=== PATIENT | female | born 1975 | race Asian ===

== ENCOUNTER 2016-10-13 19:05 | Emergency (ER) | payer OTHER ==
--- NOTE | ~2016-10-13 | EKG ---
PATIENT: STEVIE SMITH UNIT #: [id number] Ventricular Rate: 62 BPM Atrial Rate: 62 BPM P-R Interval: 168 ms QRS Duration: 86 ms Q-T Interval: 402 ms QTC Calculation(Bezet): 408 ms P [place]: 42 degrees Calculated R [place]: 15 degrees Calculated T [place]: 15 degrees Diagnosis Line: Normal sinus rhythm Diagnosis Line: Cannot rule out Anterior infarct , age Diagnosis Line: undetermined Diagnosis Line: Abnormal ECG Diagnosis Line: No previous ECGs available Diagnosis Line: Confirmed by ELVER ALVARADO MD ([id number]) on Diagnosis Line: 10/14/2016 10:41:22 AM INTERPRETING MD: CHRISTIANO REY
[2016-10-13 19:55] LABS: BASOPHIL# 0.1 X10e3 (0-0.3); BASOPHIL% 0.9 % (0-2.5); EOSINOPHIL# 0.1 X10e3 (0-0.7); EOSINOPHIL% 1.2 % (0.0-7.0); HEMATOCRIT 37.9 % (35.0-45.0); HEMOGLOBIN 12.6 gm/dL (12.0-16.0); LYMPHOCYTE# 3.7 X10e3 (1.0-3.5); LYMPHOCYTE% 36.3 % (17.0-45.0); MEAN CELL VOLUME 81.6 FL (83-96); MEAN CORPUSCULAR HEMOGLOBIN 27.2 PG (28-34); MEAN CORPUSCULAR HGB CONC 33.3 g/dL (30-36); MEAN PLATELET VOLUME 9.5 FL (6.5-11.5); MONOCYTE# 0.6 X10e3 (0-1.0); MONOCYTE% 5.4 % (3.0-12.0); NEUTROPHIL# 5.8 X10e3 (1.5-7.1); NEUTROPHIL% 56.2 % (40-75); PLATELET COUNT 227 X10e3 (140-420); RED BLOOD COUNT 4.64 X10e (3.90-5.30); RED CELL DISTRIBUTION WIDTH 13.7 % (11.0-15.5); WHITE BLOOD COUNT 10.2 X10e3 (4.0-10.5)
[2016-10-13 20:02] LABS: DIFF IND NO
[2016-10-13 20:16] LABS: ALBUMIN SERUM 4.4 g/dL (3.5-5.0); BILIRUBIN, DIRECT 0.1 mg/dL (0.0-0.2); BILIRUBIN,INDIRECT 0.4 mg/dL (0.0-0.9); BILIRUBIN,TOTAL 0.5 mg/dL (0.2-2.0); CALCIUM SERUM 9.2 mg/dL (8.4-10.2); CREATININE SERUM 0.5 mg/dL (0.6-1.4); GLOM FILT RATE Estimated 118.6 mL/min (>60); POTASSIUM 3.4 mmol/L (3.5-5.1); PROTEIN TOTAL SERUM 7.8 g/dL (6.0-8.3)
[2016-10-13 20:47] LABS: URINE SOURCE CLEAN CATCH
[2016-10-13 20:55] LABS: URINE APPEARANCE CLEAR; URINE BILIRUBIN NEG (NEG); URINE BLOOD NEG (NEG); URINE COLOR YELLOW; URINE GLUCOSE NEG (NEG); URINE KETONE NEG (NEG); URINE LEUKOCYTE ESTERASE TRACE (NEG); URINE NITRATE NEG (NEG); URINE PH 6.5 (5-8); URINE PROTEIN NEG (NEG); URINE SPECIFIC GRAVITY 1.013 (1.003-1.035)
[2016-10-13 20:58] LABS: URBCS1 AUWI 0-2 /[HPF] (0-2); URINE BACTERIA AUWI NEG (NEGATIVE); URINE SQUAMOUS EPITHELIAL CELL NONE SEEN /[HPF]
[2016-10-13 21:04] LABS: CULTURE INDICATED? NO
[2016-10-13 21:10] LABS: POC - CKMB <1.0 ng/mL (0.0-7.9); POC - TROPONIN <0.05 ng/mL (<=0.05)
== END 2016-10-13 22:00 | disposition home or self-care (01) ==
LOC: CED 19:05
PROVIDERS: Emergency Medicine
DX: S39.012A Strain of muscle, fascia and tendon of lower back, initial encounter (principal); R07.89 Other chest pain; R10.2 Pelvic and perineal pain; X50.9XXA Other and unspecified overexertion or strenuous movements or postures, initial encounter
CPT/HCPCS: 36415; 80048; 80076; 81003; 82150; 82553; 83690; 84484; 84703; 85025; 93005; 96372; 99284; J1885

== ENCOUNTER 2016-11-14 17:31 | Emergency (ER) | payer OTHER ==
--- NOTE | ~2016-11-14 | CT2 ---
[facility] A Service of [facility] RADIOLOGY TEXT RESULTS PATIENT: STEVIE SMITH LOCATION: [facility] : [birth year] UNIT #: [id number] AGE: [address]: Rob Tavarez DO SEX: F ORDER DR: [id number] [facility] [address] [place], [place] [address] [id number] E MR#: [id number] #: [id number] NAME: STEVIE SMITH : 1975 SEX: F STUDY DATE/TIME: 11/14/2016 21:33 UNIT: [facility] ROOM: STUDY DESCRIPTION: CT Abd and Pelv W Cont Attending Physician: Rob Tavarez D.O. Ordering Physician: Rob Tavarez D.O. Primary Care Physician: Primary Care Physician No MEDICAL IMAGING REPORT This report is preliminary unless electronic signature is present EXAM CT abdomen and pelvis with IV contrast HISTORY Bilateral flank pain for [address] abdomen and pelvis was performed with IV contrast. This CT examination was performed with one or more of the following radiation dose reduction techniques: automatic exposure control, adjustment of mA and/or kV according to patient size, and iterative reconstruction. CT ABDOMEN: The lung bases are clear. The liver, gallbladder, spleen, pancreas, kidneys, and adrenal glands are unremarkable. No bowel dilatation. No ascites. Normal caliber abdominal aorta. Normal appendix. Small umbilical hernia containing fat measuring close to [address] PELVIS: The uterus and adnexa are unremarkable. Incidental nabothian cysts in the cervix. No free fluid. Urinary bladder is normal. No bowel dilatation. IMPRESSION 1. No acute findings in the abdomen or pelvis. 2. No urinary obstruction or bowel obstruction. 3. Normal appendix. 4. Umbilical hernia containing fat measuring close to 3 cm. Dictated by... Nicholas Li M.D. [facility] A Service of [facility] RADIOLOGY TEXT RESULTS PATIENT: STEVIE SMITH LOCATION: [facility] : 71 UNIT #: [id number] AGE: [address]: Rob Tavarez DO SEX: F ORDER DR: THIS IS AN ELECTRONICALLY VERIFIED REPORT Nicholas Sachi Li M.D. at 11/15/2016 11:19 PM SANDRA/yahaira TD: 11/15/2016 09:39 JOB #: [id number] MEDICAL IMAGING REPORT Page 1 of 1 COPY
--- NOTE | ~2016-11-14 | EKG ---
PATIENT: STEVIE SMITH UNIT #: [id number] Ventricular Rate: 69 BPM Atrial Rate: 69 BPM P-R Interval: 160 ms QRS Duration: 84 ms Q-T Interval: 404 ms QTC Calculation(Bezet): 432 ms P [place]: 34 degrees Calculated R [place]: 12 degrees Calculated T [place]: 47 degrees Diagnosis Line: Normal sinus rhythm Diagnosis Line: Nonspecific T wave abnormality Diagnosis Line: Borderline ECG Diagnosis Line: Diagnosis Line: Confirmed by MARIAN CAMPO MD ([id number]) on 11/15/2016 Diagnosis Line: 6:23:20 PM INTERPRETING MD: ALBER REY
--- NOTE | ~2016-11-14 | CT71 ---
[facility] A Service of [facility] RADIOLOGY TEXT RESULTS PATIENT: STEVIE SMITH LOCATION: [facility] : 71 UNIT #: [id number] AGE: [address]: Rob Tavarez DO SEX: F ORDER DR: [id number] [place] [id number] [facility]. [place], [place] [address] [id number] E MR#: [id number] #: [id number] NAME: STEVIE SMITH : 1975 SEX: F STUDY DATE/TIME: 11/14/2016 21:31 UNIT: [facility] ROOM: STUDY DESCRIPTION: CT Head Wo Contrast Attending Physician: Rob Tavarez D.O. Ordering Physician: Rob Tavarez D.O. Primary Care Physician: Primary Care Physician No MEDICAL IMAGING REPORT This report is preliminary unless electronic signature is present EXAM CT head INDICATION Headache. Neck pain. Fever. TECHNIQUE CT head without contrast. This CT exam was performed with one or more of the following radiation dose reduction techniques: automatic exposure control, adjustment of mA and/or kV according to patient size, and iterative reconstruction. COMPARISON None available. FINDINGS Axial noncontrast images were obtained from the skull base to the vertex. Ventricular size and configuration are normal. There is no evidence of acute infarct or hemorrhage. There are no extra-axial fluid collections. No mass lesion or mass effect is seen. There are no skull fractures. IMPRESSION Normal noncontrast head CT. Dictated by... Jani Nava M.D. THIS IS AN ELECTRONICALLY VERIFIED REPORT Jani Nava M.D. at 11/16/2016 10:33 AM SAKINA/isiah TD: 11/15/2016 09:35 [facility] A Service [facility] RADIOLOGY TEXT RESULTS PATIENT: STEVIE SMITH LOCATION: [facility] : 71 UNIT #: [id number] AGE: [address]: Rob Tavarez DO SEX: F ORDER DR: JOB #: [id number] MEDICAL IMAGING REPORT Page 1 of 1 COPY
[2016-11-14 19:39] LABS: POC - CKMB <1.0 ng/mL (0.0-7.9); POC - TROPONIN <0.05 ng/mL (<=0.05)
[2016-11-14 19:51] LABS: BASOPHIL% 0.4 % (0-2.5); EOSINOPHIL# 0.2 X10e3 (0-0.7); EOSINOPHIL% 1.9 % (0.0-7.0); HEMATOCRIT 38.8 % (35.0-45.0); HEMOGLOBIN 13.1 gm/dL (12.0-16.0); LYMPHOCYTE# 2.9 X10e3 (1.0-3.5); LYMPHOCYTE% 29.3 % (17.0-45.0); MEAN CELL VOLUME 83.1 FL (83-96); MEAN CORPUSCULAR HEMOGLOBIN 27.9 PG (28-34); MEAN CORPUSCULAR HGB CONC 33.6 g/dL (30-36); MEAN PLATELET VOLUME 9.8 FL (6.5-11.5); MONOCYTE# 0.7 X10e3 (0-1.0); MONOCYTE% 6.5 % (3.0-12.0); NEUTROPHIL# 6.2 X10e3 (1.5-7.1); NEUTROPHIL% 61.9 % (40-75); PLATELET COUNT 227 X10e3 (140-420); RED BLOOD COUNT 4.67 X10e (3.90-5.30)
[2016-11-14 19:52] LABS: DIFF IND NO
[2016-11-14 20:07] LABS: INR 0.9; PARTIAL THROMBOPLASTIN TIME 28.9 SECONDS (23.5-31.3); PROTHROMBIN TIME (PATIENT) 10.3 SECONDS (10.0-11.7)
[2016-11-14 20:15] LABS: ALKALINE PHOSPHATASE 46 U/L (32-92); ALT (SGPT) 15 U/L (10-40); AST (SGOT) 20 U/L (10-42); BILIRUBIN,TOTAL 0.1 mg/dL (0.2-2.0); BLOOD UREA NITROGEN 10 mg/dL (9-23); BUN/CREATININE RATIO 33.33; CALCIUM SERUM 8.6 mg/dL (8.4-10.2); CARBON DIOXIDE 23 mmol/L (22-31); CHLORIDE 109 mmol/L (100-111); CREATININE SERUM 0.3 mg/dL (0.6-1.4); GLOM FILT RATE Estimated 140.3 mL/min (>60); GLUCOSE FASTING 112 mg/dL (70-110); LIPASE 21 U/L (22-51); POTASSIUM 3.4 mmol/L (3.5-5.1); PROTEIN TOTAL SERUM 7.5 g/dL (6.0-8.3); SODIUM 138 mmol/L (135-145)
[2016-11-14 20:19] LABS: BILIRUBIN, DIRECT <0.1 mg/dL (0.0-0.2)
[2016-11-14 20:41] LABS: URINE SOURCE CLEAN CATCH
[2016-11-14 20:49] LABS: URINE APPEARANCE TURBID; URINE BILIRUBIN NEG (NEG); URINE BLOOD NEG (NEG); URINE COLOR YELLOW; URINE GLUCOSE NEG (NEG); URINE KETONE NEG (NEG); URINE LEUKOCYTE ESTERASE 1+ (NEG); URINE NITRATE NEG (NEG); URINE PROTEIN NEG (NEG)
[2016-11-14 20:51] LABS: CULTURE INDICATED? YES; URINE BACTERIA AUWI 1+ (NEGATIVE); URINE SQUAMOUS EPITHELIAL CELL MOD /[HPF]
== END 2016-11-14 22:40 | disposition home or self-care (01) ==
LOC: CED 17:31
PROVIDERS: Emergency Medicine
DX: R51 Headache (principal); N39.0 Urinary tract infection, site not specified
CPT/HCPCS: 36415; 70450; 74177; 80048; 80076; 81003; 82553; 83690; 84484; 85025; 85610; 85730; 87086; 93005; 96361; 96374; 96375; 99284; J1200; J2765; Q9967